=== PATIENT | female | born 1955 | race Caucasian/White ===

== ENCOUNTER 2019-04-12 12:03 | Day surgery (SDC) | payer MEDICARE, OTHER ==
[~2019-04-12] VITALS: Ht 167.6 cm; Wt 93.4 kg
--- NOTE | ~2019-04-12 | OR ---
[facility] [address], [place] [address] Draft DATE OF OPERATION: 04/12/2019 SURGEON: Carmelina Gunn MD PREOPERATIVE DIAGNOSIS: Colon screening. POSTOPERATIVE DIAGNOSES: 1. Small flat polyp, sigmoid at 20 cm. 2. Hypertrophied anal papilla x1. PROCEDURE: Total colonoscopy to cecum with cold morcellation, excision of sigmoid polyp. ANESTHESIA: Intravenous sedation, fentanyl 100 mcg, Versed 3 mg. INDICATION: This 63-year-old white woman is a patient of Humza Roldan DO. She is referred for colon screening. She is asymptomatic, having no bleeding, diarrhea or constipation. She has no family history of colon cancer that she is aware of. She has never had colonoscopy in the past. She understands the risks of bleeding, infection, and perforation related to colonoscopy and wished to proceed. FINDINGS: The prep was excellent. Complete colonoscopy was undertaken to the cecum without question. She was noted to have a flat polyp in the sigmoid colon, which was small. This was excised completely. Additionally, a hypertrophied anal papilla was noted. The remaining colon and rectum was normal. PROCEDURE NOTE: The patient was brought to the endoscopy suite and placed in lateral decubitus position, given intravenous sedation to the point of slurred speech and nystagmus. Digital rectal examination was normal. An Olympus video colonoscope was passed in the rectum and manipulated throughout the colon ultimately intubating the cecum itself. The ileocecal valve and appendiceal orifice were normal. Scope was withdrawn from that point. Examination showed no sign of abnormality until approximately 20 cm from the anal verge where a small flat polyp was noted. Narrow band imaging allowed for good definition of the lesion. This was excised with cold morcellation technique with several bites. The scope was further withdrawn. Retroflexed view of the rectum was undertaken PATIENT NAME: NIK MURILLO OPERATIVE REPORT DATE OF : 51 REPORT #: [id number] PHYSICIAN: CARMELINA GUNN MD PCP: HUMZA ROLDAN DO REPORT IS CONFIDENTIAL AND NOT TO BE RELEASED WITHOUT AUTHORIZATION [facility] [address], [place] [address] Draft demonstrating a hypertrophied anal papilla, which had been palpated on digital exam. It was otherwise benign. The scope was withdrawn and removed. The patient was taken to recovery room in good condition. CONCLUDING DIAGNOSES: 1. Flat polyp, sigmoid colon, probably hyperplastic. 2. Hypertrophied anal papilla. PLAN: Recommend repeat colonoscopy in 3 years sooner if clinically indicated. High-fiber diet would be recommended as well. She will return to the ongoing care of Dr. Roldan. MD BARBIE Downs/RASHELL /[id number] cc: Humza Roldan DO Copies: HUMZA ROLDAN DO ~ PATIENT NAME: NIK MURILLO OPERATIVE REPORT DATE OF : 51 REPORT #: [id number] PHYSICIAN: CARMELINA GUNN MD PCP: HUMZA ROLDAN DO REPORT IS CONFIDENTIAL AND NOT TO BE RELEASED WITHOUT AUTHORIZATION
[2019-04-12] MEDS ORDERED: ESCITALOPRAM OX20 MG PO (12:32)
--- NOTE | 2019-04-12 14:23 | NUR ---
04/12/19 1423 Heydi Ortiz 1420-PATIENT ARRIVED TO PACU ON 2L NC PATIENT AWAKE DROWSY LAYING LEFT LATERAL REPOSITIONS SELF TO BACK DENIES PAIN OR NAUSEA. ENCOURAGED TO PASS GAS. RR EVEN. IVF INFUSING
--- NOTE | 2019-04-12 16:15 | NUR ---
1615-PATIENT SITTING UP ON SIDE OF BED DENIES PAIN OR NAUSEA. REPORTS "FEELS BETTER" IV REMOVED. DC INSTRUCTIONS REVIEWED. CALLED AND UPDATED SON AND GIVEN INSTRUCTIONS. PATIENT TO DC HOME.
--- NOTE | 2019-04-13 15:42 | PATH ---
[facility] [address] [id number] Signed SPECIMEN(S): A SIGMOID POLYP SPECIMEN SOURCE: A. SIGMOID POLYP CLINICAL HISTORY: Screening. Postop DX: Polyp; hypertrophic anal papillae. MICROSCOPIC DESCRIPTION: Histologic sections of all submitted blocks are examined by light microscopy. These findings, together with the gross examination, support the pathologic diagnosis. FINAL PATHOLOGIC DIAGNOSIS: Mucosa, sigmoid colon, biopsy: - Hyperplastic polyp. LJA:glc:C___ GROSS DESCRIPTION: The specimen, labeled "RC, sigmoid colon polyp," is received in formalin and consists of three, 0.1 to 0.2 cm, danielle tissue fragments. Specimen is entirely submitted in cassette (A1). AM (under the direct supervision of a pathologist) The Gross Description was prepared using a voice recognition system. The report was reviewed for accuracy; however, sound-alike word errors, addition and/or deletions may occur. If there is any question about this report, please contact Client Services. PERFORMING LABORATORY: The technical component was performed by [facility], [address] [place] [id number] (Retort Firer: Danna Marquez MD; CLIA# [id number]). Professional interpretation was performed by [facility], [address] [address] (Retort Firer: Siddharth Badillo MD; CLIA# [id number]). Diagnostician: Siddharth Badillo MD Pathologist Electronically Signed 04/13/2019 Copies: PATIENT NAME: NIK MURILLO PATHOLOGY DATE OF : 51 REPORT #: [id number] PHYSICIAN: CHEL[facility]Y PATHOLOGY PCP: ROBIN ROLDAN DO REPORT IS CONFIDENTIAL AND NOT TO BE RELEASED WITHOUT AUTHORIZATION [address] [address] Signed ~ PATIENT NAME: NIK MURILLO PATHOLOGY DATE OF : 51 REPORT #: [id number] PHYSICIAN: CHELSEY PATHOLOGY PCP: ROBIN ROLDAN DO REPORT IS CONFIDENTIAL AND NOT TO BE RELEASED WITHOUT AUTHORIZATION
== END 2019-04-12 16:15 | disposition home or self-care (01) ==
LOC: OPS 12:03 → DS 12:03 → OPS 13:00
PROVIDERS: Surgery
PROC: 0DBN8ZZ Excision of Sigmoid Colon, Via Natural or Artificial Opening Endoscopic (ICD-10-PCS; principal; 2019-04-12 13:00)
DX: Z12.11 Encounter for screening for malignant neoplasm of colon (principal); K63.5 Polyp of colon; K62.89 Other specified diseases of anus and rectum; F41.8 Other specified anxiety disorders; E66.9 Obesity, unspecified; M72.2 Plantar fascial fibromatosis; Z88.8 Allergy status to other drugs, medicaments and biological substances; Z98.890 Other specified postprocedural states; Z87.442 Personal history of urinary calculi
CPT/HCPCS: 99153; G0500; J2250; J2405; J3010; J7121